=== PATIENT | female | born 1965 | race American Indian/Alaskan Native ===

== ENCOUNTER 2021-05-19 04:48 | Emergency (ER) | payer SELFPAY ==
[2021-05-19 05:01] VITALS: BP 180/106
--- NOTE | 2021-05-19 08:09 | Emergency Department Report ---
- General Chief complaint: Extremity Injury, Lower Stated complaint: RIGHT FOOT PAIN Time Seen by Provider: 05/19/21 07:44 Source: EMS Mode of arrival: Ambulatory Limitations: No Limitations - History of Present Illness Initial comments: 55-year-old -[place]ish female with a history of end-stage renal disease goes to dialysis Monday and hypertension diabetes presents to the emergency room complaining of right foot sore for 4 months. She also reports that has a sore hurst right 2nd toe on the top. She denies any fever no drainage. She states that she was seen at [place] for this but has not followed up with her primary care provider she does not have 1. Patient denies any drainage no swelling no fever or chills. MD complaint: lesion Onset/Timin -: month(s) Tetanus Up to Date: yes Location: R foot Severity scale (0 -10): 4 Quality: aching Consistency: intermittent Improves with: immobilization Worsens with: movement Context: none Associated symptoms: denies other symptoms - Related Data Allergies Allergy/AdvReac Type Severity Reaction Status Date / Time No Known Allergies Allergy Verified 05/19/21 05:00 Abscess Boil HPI - HPI Chief Complaint: Extremity Injury, Lower Stated Complaint: RIGHT FOOT PAIN Time Seen by Provider: 05/19/21 07:44 Allergies/Adverse Reactions: Allergies Allergy/AdvReac Type Severity Reaction Status Date / Time No Known Allergies Allergy Verified 05/19/21 05:00 ED Review of Systems ROS: Stated complaint: RIGHT FOOT PAIN Other details as noted in HPI Comment: All other systems reviewed and negative ED Past Medical Hx - Past Medical History Hx Hypertension: Yes Hx Heart Attack/AMI: No Hx Congestive Heart Failure: Yes Hx Deep Vein Thrombosis: No Hx Pulmonary Embolism: No Hx Renal Disease: No Hx Arthritis: No Hx Seizures: No Hx Asthma: No Hx COPD: No - Surgical History Hx Pacemaker: No Hx Cholecystectomy: No Hx Appendectomy: No - Social History Smoking Status: Never Smoker ED Physical Exam - General Limitations: No Limitations General appearance: alert, in no apparent distress - Head Head exam: Present: atraumatic, normocephalic - Eye Eye exam: Present: normal appearance - ENT ENT exam: Absent: normal external ear exam - Neck Neck exam: Present: normal inspection, full ROM - Respiratory Respiratory exam: Absent: respiratory distress, accessory muscle use - Cardiovascular Cardiovascular Exam: Present: regular rate - Expanded Lower Extremity Exam Right Hip exam: Present: full ROM Upper Leg exam: Present: normal inspection, full ROM Knee exam: Present: normal inspection, full ROM Lower Leg exam: Present: normal inspection, full ROM Ankle exam: Present: full ROM, swelling Foot/Toe exam: Present: tenderness (2nd toe appears to have a callus on top of the toe, half dollar size dry nonerythematous ulcer on the palmar side of foot nontender to touch, dry flaky skin). Absent: swelling Gait: Positive: observed and normal ED Course Vital Signs 05/19/21 05:00 Temperature 98.1 F Pulse Rate 67 Respiratory 18 Rate Blood Pressure 180/106 [Left] O2 Sat by Pulse 99 Oximetry Critical care attestation.: If time is entered above; I have spent that time in minutes in the direct care of this critically ill patient, excluding procedure time. ED Disposition Clinical Impression: Callus of toe, Chronic foot ulcer Disposition: HOME / SELF CARE / HOMELESS Is pt being admited?: No Does the pt Need Aspirin: No Condition: Stable Instructions: Diabetes Mellitus and Foot Care, Corns and Calluses Additional Instructions: Please follow-up with wound clinic for your dry ulcers and corn/callus. Is also important you follow-up with a primary care provider I am referring you to one as well. You can take Tylenol for your pain management. Referrals: [facility] [Outside] - 3-5 Days [facility] [Provider Group] - 3-5 Days Time of Disposition: 08:12
== END 2021-05-19 08:32 | disposition home or self-care (01) ==
LOC: ED 04:48
DX: L97.529 Non-pressure chronic ulcer of other part of left foot with unspecified severity (principal); I11.0 Hypertensive heart disease with heart failure; I50.9 Heart failure, unspecified
CPT/HCPCS: 99283